=== PATIENT | female | born 1975 | race Caucasian/White ===

== ENCOUNTER 2018-12-20 22:27 | Emergency (ER) | payer BC ==
[~2018-12-20] VITALS: Ht 165.1 cm; Wt 54.4 kg
[2018-12-20 22:42] VITALS: BP_SYST 129
[2018-12-20] MEDS ORDERED: KETOROLAC TROMETHAMINE 60 MG/2 ML VIAL IM ONE (23:31)
[2018-12-21] MEDS ORDERED: KETOROLAC TROMETHAMINE 60 MG/2 ML VIAL IM ONE (00:29)
[2018-12-21 01:22] VITALS: BP_SYST 129
== END 2018-12-21 01:21 | disposition home or self-care (01) ==
LOC: SED 22:27
DX: N76.0 Acute vaginitis (principal); B96.89 Other specified bacterial agents as the cause of diseases classified elsewhere; R19.7 Diarrhea, unspecified; Z88.1 Allergy status to other antibiotic agents; Z88.6 Allergy status to analgesic agent
CPT/HCPCS: 87210; 99283; J1885; 96372

== ENCOUNTER 2019-07-06 17:11 | Emergency (ER) | payer BC, MEDICAID ==
[~2019-07-06] VITALS: Ht 165.1 cm; Wt 54.4 kg
[2019-07-06 17:14] VITALS: BP_SYST 116
[2019-07-06 17:42] LABS: BILIRUBIN,URINE NEGATIVE (NEGATIVE); BLOOD, URINE NEGATIVE (NEGATIVE); CLARITY/URINE CLEAR (CLEAR); COLOR,URINE YELLOW (YELLOW); GLUCOSE,URINE NEGATIVE (NEGATIVE); KETONES,URINE TRACE (NEGATIVE); LEUKOCYTE ESTERASE ,URINE NEGATIVE (NEGATIVE); NITRITE, URINE NEGATIVE (NEGATIVE); PROTEIN URINE NEGATIVE (NEGATIVE)
[2019-07-06 17:56] LABS: BASOPHILS # (AUTO) 0.1 K/uL (0.0-0.2); BASOPHILS % (AUTO) 1.4 % (0.0-2.0); EOSINOPHILS # (AUTO) 0.1 K/uL (0.0-0.4); EOSINOPHILS % (AUTO) 0.8 % (0.0-4.0); HEMATOCRIT 36.8 % (36-48); HEMOGLOBIN 12.9 g/dL (12.0-16.0); LYMPHOCYTES # (AUTO) 2.3 K/uL (1.0-5.5); LYMPHOCYTES % (AUTO) 31.2 % (20.5-51.5); MEAN CORPUSCULAR HEMOGLOBIN 33 pg (27-31); MEAN CORPUSCULAR HGB CONC 35 % (32-36); MEAN CORPUSCULAR VOLUME 94 fL (79.0-98.0); MONOCYTES # (AUTO) 0.7 K/uL (0.0-1.0); MONOCYTES % (AUTO) 9.3 % (1.7-9.3); NEUTROPHILS # (AUTO) 4.2 K/uL (1.8-7.7); NEUTROPHILS % (AUTO) 57.3 % (40.0-70.0); PLATELET COUNT (AUTO) 269 K/uL (130-430); RED BLOOD CELL COUNT(AUTO) 3.92 MIL/uL (4.2-6.2); RED CELL DISTRIBUTION WIDTH 12.5 % (9.0-15.0); WHITE BLOOD COUNT (AUTO) 7.4 K/uL (4.8-10.8)
[2019-07-06 18:13] LABS: ALBUMIN 3.2 g/dL (3.4-4.8); CREATININE 0.71 mg/dL (0.55-1.30); POTASSIUM 3.7 mmol/L (3.5-5.1); TOTAL BILIRUBIN 0.4 mg/dL (0.0-1.0)
[2019-07-06 18:16] LABS: CALCIUM 8.8 mg/dL (8.4-11.0)
[2019-07-06] MEDS ORDERED: KETOROLAC TROMETHAMINE 30 MG VIAL IM ONE (19:00)
[2019-07-06 20:30] VITALS: BP_SYST 118
== END 2019-07-06 20:30 | disposition home or self-care (01) ==
LOC: SED 17:11
DX: N83.201 Unspecified ovarian cyst, right side (principal); F17.200 Nicotine dependence, unspecified, uncomplicated; Z71.6 Tobacco abuse counseling; Z88.1 Allergy status to other antibiotic agents; Z88.6 Allergy status to analgesic agent
CPT/HCPCS: 36415; 74176; 76830; 76857; 80053; 81003; 81025; 83690; 85025; 93005; 96372; 99284; J1885; 76856-TC

== ENCOUNTER 2020-07-19 11:44 | Emergency (ER) | payer MEDICAID ==
[~2020-07-19] VITALS: Ht 165.1 cm; Wt 55.8 kg
[2020-07-19 11:49] VITALS: BP_SYST 106
--- NOTE | 2020-07-19 11:55 | NUR ---
Patient to ER bed 7 to gown for evaluation. Side rails up. Report given to Clement MEJIA.
--- NOTE | 2020-07-19 11:57 | NUR ---
Patient arrived in the ED c/o left flank pain that radiates down to the left groin that started 2 days ago and also spotting for a month now. Patient denied any chest pain or shortness of breath. Denied any fevers, chills, nausea, or vomiting. Patient is alert and oriented x4, respirations even and unlabored, speaking in full sentences, ambulating with a steady gait. VSS, pain level 8/10. Informed of approximate wait time. Instructed to notify ED staff for any changes in condition or worsening of symptoms. Patient verbalized understanding.
--- NOTE | 2020-07-19 12:04 | NUR ---
ER Dr. Bradford at bedside examining patient.
[2020-07-19] MEDS ORDERED: KETOROLAC TROMETHAMINE 60 MG/2 ML VIAL IM ONE (12:15)
--- NOTE | 2020-07-19 12:20 | NUR ---
Patient ambulates to ER bed 7 in the ED c/o intermittent L flank pain x 1 month and pulsating pain to mid abdomen with some nausea. Denies chest pain, shortness of breath, fevers, chills, and vomiting. Patient is alert and oriented x4, respirations even and unlabored, speaking in full sentences, and ambulating with a steady gait. VSS, pain level 8/10. Informed of the approximate wait time. Instructed to notify ED staff for any changes in condition or worsening of symptoms while waiting to be seen by an ED provider. Patient verbalized understanding.
--- NOTE | 2020-07-19 12:24 | NUR ---
multimedia technician at bedside as ordered by Dr. Bradford collecting blood specimen. Patient tolerated the procedure well.
[2020-07-19 12:33] LABS: BASOPHILS # (AUTO) 0.1 K/uL (0.0-0.2); BASOPHILS % (AUTO) 1.2 % (0.0-2.0); EOSINOPHILS # (AUTO) 0.1 K/uL (0.0-0.4); EOSINOPHILS % (AUTO) 1.1 % (0.0-4.0); HEMATOCRIT 37.8 % (36-48); HEMOGLOBIN 12.9 g/dL (12.0-16.0); LYMPHOCYTES % (AUTO) 38.4 % (20.5-51.5); MEAN CORPUSCULAR HEMOGLOBIN 32 pg (27-31); MEAN CORPUSCULAR HGB CONC 34 % (32-36); MEAN CORPUSCULAR VOLUME 95 fL (79.0-98.0); MONOCYTES # (AUTO) 0.5 K/uL (0.0-1.0); MONOCYTES % (AUTO) 9.8 % (1.7-9.3); NEUTROPHILS # (AUTO) 2.5 K/uL (1.8-7.7); NEUTROPHILS % (AUTO) 49.5 % (40.0-70.0); PLATELET COUNT (AUTO) 273 K/uL (130-430); RED CELL DISTRIBUTION WIDTH 12.8 % (9.0-15.0); WHITE BLOOD COUNT (AUTO) 5.1 K/uL (4.8-10.8)
--- NOTE | 2020-07-19 12:36 | NUR ---
Patient returns from CT scan.
--- NOTE | 2020-07-19 12:38 | NUR ---
Patient refuses Toradol IM at this time and requests to have a pill for pain instead. made aware.
[2020-07-19 12:49] LABS: CALCIUM 8.7 mg/dL (8.4-11.0); CREATININE 0.64 mg/dL (0.55-1.30); POTASSIUM 3.8 mmol/L (3.5-5.1)
[2020-07-19 12:55] LABS: ALBUMIN 3.5 g/dL (3.4-4.8); TOTAL BILIRUBIN 0.5 mg/dL (0.0-1.0)
--- NOTE | 2020-07-19 13:45 | NUR ---
ER Dr. Bradford at bedside for re-evaluation and discharge instructions.
[2020-07-19 13:59] VITALS: BP_SYST 106
--- NOTE | 2020-07-19 14:00 | NUR ---
Patient given written and verbal discharge instructions and verbalizes understanding. ER MD discussed with patient the results and treatment provided. Patient in stable condition. ID arm band removed. Rx of Tramadol given. Patient educated on pain management and to follow up with PMD. Pain Scale 0/10. Opportunity for questions provided and answered. Medication side effect fact sheet provided.
== END 2020-07-19 14:00 | disposition home or self-care (01) ==
LOC: SED 11:44
DX: N83.202 Unspecified ovarian cyst, left side (principal); R10.32 Left lower quadrant pain; Z88.1 Allergy status to other antibiotic agents; Z88.6 Allergy status to analgesic agent
CPT/HCPCS: 36415; 74176; 80053; 81002; 81025; 83690; 85025; 99284; J1885